=== PATIENT | female | born 1980 | race Caucasian/White ===

== ENCOUNTER 2023-08-31 09:21 | Day surgery (SDC) | payer BC, SELFPAY ==
[2023-08-31] VITALS (10 sets, daily range): BP systolic 121–140; BP diastolic 81–103; PULSE 64–83; RESP 16–20; TEMP 36–36.7; O2SAT 96–100; BMI 22.4
[2023-08-31] MEDS: LACTATED RINGERS 1000 ML 1,000 ML 100 ML IV (10:03)
[2023-08-31] MEDS: SODIUM CHLORIDE 0.9 % (FLUSH) 10 ML SYRINGE IVF (10:03)
--- NOTE | 2023-08-31 11:00 | W.ANESCHARGE ---
Anesthesia Charges Start Date/Time Anesthesia Start Date: 08/31/23 Anesthesia Start Time: 11:27 Stop Date/Time Anesthesia Stop Date: 08/31/23 Anesthesia Stop Time: 11:49
[2023-08-31] MEDS: CIPROFLOX/DEXAMETH OTIC (nc) 4 DROP EAR-RIGHT (11:37)
--- NOTE | 2023-08-31 11:40 | W.ANESCHARGE ---
Anesthesia Charges Start Date/Time Anesthesia Start Date: 08/31/23 Anesthesia Start Time: 11:27 Stop Date/Time Anesthesia Stop Date: 08/31/23 Anesthesia Stop Time: 11:49
--- NOTE | 2023-08-31 11:46 | W.PM.ENTPROC ---
Procedure Note Date of procedure: 08/31/23 Procedure: Preoperative diagnosis retained right tympanostomy tube, eustachian tube dysfunction Postoperative diagnosis same Procedure removal of retained tube via myringotomy, placement of a permanent right tympanostomy tube Under general mask anesthesia patient was prepped and draped in usual fashion. The ear was evaluated with the operating microscope. The previously placed tube would had fallen into the middle ear space. An incision was made overlying this and the tube was easily removed. Unfortunately this opening was not in the correct place to put a new tube. I made an anterior inferior radial myringotomy incision and a T-tube was trimmed and then placed without difficulty. Ciprodex drops were placed. The patient procedure well was taken recovery in satisfactory condition. Blood loss was less than 5 mL. Surgeon: Srinath Oakes MD
[2023-08-31] MEDS: fentaNYL 100 MCG/2 ML inj 50 MCG IVP ×2 (11:58→12:36)
[2023-08-31] MEDS: ACETAMINOPHEN 325 MG TABLET PO (12:33)
[2023-08-31] MEDS: IBUPROFEN 200 MG TABLET PO (12:35)
== END 2023-08-31 13:22 | disposition home or self-care (01) ==
PROVIDERS: Visit Provider Otolaryngology
PROC: (CPT 69420; principal; 2023-08-31 10:45)
DX: T85.698A Other mechanical complication of other specified internal prosthetic devices, implants and grafts, initial encounter (principal); H69.81 Other specified disorders of Eustachian tube, right ear
CPT/HCPCS: 69436; 00120; A9270; J1100; J2405; J2704; J3010; J7120